=== PATIENT | male | born 1955 | race Caucasian/White ===

== ENCOUNTER 2020-09-02 10:22 | Emergency (ER) | payer OTHER ==
[~2020-09-02] VITALS: Ht 170.2 cm; Wt 68.1 kg
[2020-09-02 11:01] LABS: BASO # 0.1 x10^3/uL (0.0-0.2); BASO % 1 % (0-3); EOS # 0.1 x10^3/uL (0.0-0.7); EOS % 1 % (0-3); HEMATOCRIT 47.1 % (39.0-53.0); HEMOGLOBIN 16.1 g/dL (13.0-17.5); LYMPH # 1.4 x10^3/uL (1.0-4.8); LYMPH % 15 % (24-48); MEAN CORPUSCULAR HEMOGLOBIN 30 pg (25-35); MEAN CORPUSCULAR HGB CONC 34 g/dL (31-37); MEAN CORPUSCULAR VOLUME 89 fL (79-100); MONO # 0.6 x10^3/uL (0.0-1.1); MONO % 6 % (0-9); NEUT # 7.2 x10^3/uL (1.8-7.7); NEUT % 77 % (31-73); PLATELET COUNT 302 x10^3/uL (140-400); RED BLOOD COUNT 5.32 x10^6/uL (4.30-5.70); RED CELL DISTRIBUTION WIDTH 13.9 % (11.5-14.5); WHITE BLOOD COUNT 9.3 x10^3/uL (4.0-11.0)
[2020-09-02 11:16] LABS: CALCIUM 8.9 mg/dL (8.5-10.1); CREATININE 0.5 mg/dL (0.7-1.3); GFR 167.4; POTASSIUM 4.4 mmol/L (3.5-5.1)
[2020-09-02 11:21] LABS: ALBUMIN/GLOBULIN RATIO 1.2 (1.0-1.7); MAGNESIUM 1.9 mg/dL (1.8-2.4); TOTAL BILIRUBIN 0.8 mg/dL (0.2-1.0); TOTAL PROTEIN 7.4 g/dL (6.4-8.2)
[2020-09-02 11:30] VITALS: BP 134/75
[2020-09-02 11:49] LABS: BILIRUBIN,URINE NEGATIVE (NEG); CLARITY,URINE CLEAR; COLOR,URINE YELLOW; NITRITE,URINE NEGATIVE (NEG); PROTEIN,URINE NEGATIVE (NEG-TRACE)
[2020-09-02 12:12] LABS: BACTERIA,URINE 0 /HPF (0-FEW); WBC,URINE 0 /HPF (0-4)
--- NOTE | 2020-09-02 12:12 | EKG ---
[facility] [address] [place] [address] Test Date: 2020-09-02 Test Time: 11:00:24 Pat Name: KAYA ALDANA Department: Room: Gender: M [employer]: : 1955 Requested By: RADHA OLSEN Order Number: [id number] Reading MD: Measurements Intervals Gray Rate: 78 P: 154 ND: 186 QRS: 132 QRSD: 88 T: 125 QT: 374 QTc: 430 Interpretive Statements SINUS RHYTHM ABNORMAL RIGHT AXIS DEVIATION INCOMPLETE RIGHT BUNDLE BRANCH BLOCK CONSIDER RIGHT VENTRICULAR HYPERTROPHY QRS(T) CONTOUR ABNORMALITY CONSISTENT WITH HIGH LATERAL INFARCT AGE UNDETERMINED ABNORMAL ECG RI6.02 No previous ECG available for comparison
--- NOTE | 2020-09-02 12:16 | RAD ---
CT HEAD/BRAIN WO History: Reason: near syncope, dizzy / Spl. Instructions: / History: Comparison: None. Technique: Noncontrast CT imaging was performed of the head. Exposure: One or more of the following individualized dose reduction techniques were utilized for thi s examination: 1. Automated exposure control 2. Adjustment of the mA and/or kV according to patient size 3. Use of iterative reconstruction technique. Findings: No intracranial hemorrhage. No mass effect. No hydrocephalus. Diffuse falcine and tentorial calcifica tions. Foci of decreased attenuation within the hemispheric white matter, most often due to chronic microvas cular ischemia. Imaged orbits are unremarkable. Mild scattered paranasal sinus mucosal thickening. Mastoid air cells are clear. No acute calvarial fracture. Impression: 1. No acute intracranial abnormality. 2. Mild sequelae of chronic microvascular ischemia. Electronically signed by: Oscar Gomez DO (09/02/2020 12:14 PM) [id number]
[2020-09-02] MEDS ORDERED: predniSONE 20 MG TABLET PO ONE (12:30)
[2020-09-02] MEDS ORDERED: PRED20TA PO (12:33)
--- NOTE | 2020-09-02 12:34 | ED.ADGEN ---
Past Medical History Past Medical History: Cancer, Hypertension Additional Past Medical Histor: COLORECTAL, PROSTATE CA Past Surgical History: Other Additional Past Surgical Histo: RECTAL SX AND PROSTATECTOMY Smoking Status: Never Smoker Alcohol Use: Occasionally General Adult EDM: Chief Complaint: OTHER COMPLAINTS HPI: HPI: Patient is a 64 year old male who presents emergency department, accompanied by his , with complaints of right-sided facial numbness, and drooping. Patient reports he received his first COVID-19 injection yesterday. He states that when he went to bed last night he had a severe headache in the right posterior scalp. Patient denies any headache at this time. States that he woke up with the facial numbness and droop. He denies any numbness, tingling, or weakness of his extremities. He denies any chest pain, aphasia, vision changes, palpitations, edema, shortness of breath, wheezing, cough, body aches, fatigue, fever, nausea, vomiting, diarrhea, or abdominal pain. Patient currently denies any pain. He denies any previous history of stroke. Review of Systems: Review of Systems: Complete ROS is negative unless otherwise noted in HPI. Current Medications: Current Medications Medications (Trade) Dose Ordered Sig/Donovan Start Time Stop Time Status Last Admin Dose Admin Prednisone (Prednisone) 60 mg 1X ONCE 09/02/20 12:30 09/02/20 12:31 DC 09/02/20 12:39 60 MG Allergies: Allergies: Allergies Coded Allergies Type Severity Reaction Last Updated Verified No Known Drug Allergies 09/02/20 No Physical Exam: PE: See Above Constitutional: Well developed, well nourished, no acute distress, non-toxic appearance. [] HENT: Normocephalic, atraumatic, bilateral external ears normal, oropharynx moist, no oral exudates, nose normal. [] Eyes: PERRLA, EOMI, conjunctiva normal, no discharge. [] Neck: Normal range of motion, no tenderness, supple, no stridor. [] Cardiovascular:Heart rate regular rhythm Lungs & Thorax: Respirations even and unlabored, no retractions, no respiratory distress Abdomen:soft, no tenderness Skin: Warm, dry, no erythema, no rash. [] Extremities: No tenderness, no cyanosis, no clubbing, ROM intact, no edema. [] Neurologic: Alert and oriented X 3, normal motor function, no focal deficits noted; right-sided facial droop, unable to close right eyelid completely, unable to elevate right brow and forehead Psychologic: Affect normal, judgement normal, mood normal. [] Current Patient Data: Labs: Laboratory Tests Test 09/02/20 10:38 09/02/20 10:50 09/02/20 11:35 Glucose (Fingerstick) 110 mg/dL (70-99) H White Blood Count 9.3 x10^3/uL (4.0-11.0) Red Blood Count 5.32 x10^6/uL (4.30-5.70) Hemoglobin 16.1 g/dL (13.0-17.5) Hematocrit 47.1 % (39.0-53.0) Mean Corpuscular Volume 89 fL (79-100) Mean Corpuscular Hemoglobin 30 pg (25-35) Mean Corpuscular Hemoglobin Concent 34 g/dL (31-37) Red Cell Distribution Width 13.9 % (11.5-14.5) Platelet Count 302 x10^3/uL (140-400) Neutrophils (%) (Auto) 77 % (31-73) H Lymphocytes (%) (Auto) 15 % (24-48) L Monocytes (%) (Auto) 6 % (0-9) Eosinophils (%) (Auto) 1 % (0-3) Basophils (%) (Auto) 1 % (0-3) Neutrophils # (Auto) 7.2 x10^3/uL (1.8-7.7) Lymphocytes # (Auto) 1.4 x10^3/uL (1.0-4.8) Monocytes # (Auto) 0.6 x10^3/uL (0.0-1.1) Eosinophils # (Auto) 0.1 x10^3/uL (0.0-0.7) Basophils # (Auto) 0.1 x10^3/uL (0.0-0.2) Sodium Level 133 mmol/L (136-145) L Potassium Level 4.4 mmol/L (3.5-5.1) Chloride Level 96 mmol/L (98-107) L Carbon Dioxide Level 24 mmol/L (21-32) Anion Gap 13 (6-14) Blood Urea Nitrogen 10 mg/dL (8-26) Creatinine 0.5 mg/dL (0.7-1.3) L Estimated GFR (Cockcroft-Gault) 167.4 BUN/Creatinine Ratio 20 (6-20) Glucose Level 110 mg/dL (70-99) H Calcium Level 8.9 mg/dL (8.5-10.1) Magnesium Level 1.9 mg/dL (1.8-2.4) Total Bilirubin 0.8 mg/dL (0.2-1.0) Aspartate Amino Transferase (AST) 22 U/L (15-37) Alanine Aminotransferase (ALT) 31 U/L (16-63) Alkaline Phosphatase 94 U/L (46-116) Total Protein 7.4 g/dL (6.4-8.2) Albumin 4.0 g/dL (3.4-5.0) Albumin/Globulin Ratio 1.2 (1.0-1.7) Urine Collection Type Unknown Urine Color Yellow Urine Clarity Clear Urine pH 7.0 (<5.0-8.0) Urine Specific [place] 1.010 (1.000-1.030) Urine Protein Negative mg/dL (NEG-TRACE) Urine Glucose (UA) Negative mg/dL (NEG) Urine Ketones (Stick) 15 mg/dL (NEG) Urine Blood Negative (NEG) Urine Nitrite Negative (NEG) Urine Bilirubin Negative (NEG) Urine Urobilinogen Dipstick 1.0 mg/dL (0.2 mg/dL) Urine Leukocyte Esterase Negative (NEG) Urine RBC 1-2 /HPF (0-2) Urine WBC 0 /HPF (0-4) Urine Squamous Epithelial Cells Few /LPF Urine Bacteria 0 /HPF (0-FEW) Urine Mucus Slight /LPF Laboratory Tests 09/02/20 10:50 Laboratory Tests 09/02/20 10:50 Vital Signs: Vital Signs Date Time Temp Pulse Resp B/P (MAP) Pulse Ox O2 Delivery O2 Flow Rate FiO2 09/02/20 11:30 71 134/75 (94) 94 Room Air 09/02/20 10:35 98.3 18 98.3 EKG: EK-sinus rhythm, incomplete right bundle branch block, rate 78, no STEMI, read by Dr. Dimas [] Heart Score: C/O Chest Pain: No Risk Scores: Score 0 - 3: 2.5% MACE over next 6 weeks - Discharge Home Score 4 - 6: 20.3% MACE over next 6 weeks - Admit for Clinical Observation Score 7 - 10: 72.7% MACE over next 6 weeks - Early Invasive Strategies Radiology/Procedures: Radiology/Procedures: PROCEDURE: CT HEAD WO CONTRAST CT HEAD/BRAIN WO History: Reason: near syncope, dizzy / Spl. Instructions: / History: Comparison: None. Technique: Noncontrast CT imaging was performed of the head. Exposure: One or more of the following individualized dose reduction techniques were utilized for this examination: 1. Automated exposure control 2. Adjustment of the mA and/or kV according to patient size 3. Use of iterative reconstruction technique. Findings: No intracranial hemorrhage. No mass effect. No hydrocephalus. Diffuse falcine and tentorial calcifications. Foci of decreased attenuation within the hemispheric white matter, most often due to chronic microvascular ischemia. Imaged orbits are unremarkable. Mild scattered paranasal sinus mucosal thickening. Mastoid air cells are clear. No acute calvarial fracture. Impression: 1. No acute intracranial abnormality. 2. Mild sequelae of chronic microvascular ischemia. [] Course & Med Decision Making: Course & Med Decision Making Pertinent Labs and Imaging studies reviewed. (See chart for details) 64-year-old presents emergency department complaints of right-sided facial numbness and drooping after receiving his COVID-19 shot yesterday. Also reported having a headache in the posterior right side of the scalp yesterday evening, he currently denied any headache or vision changes. CT the patient's head revealed no acute findings. CBC is unremarkable; CMP revealed sodium 133, chloride 96, creatinine 1.5, glucose of 110; UA is unremarkable. The patient's vital signs are stable throughout his emergency department visit. Physical pain is most concerning for Spear's palsy. Patient was given 60 mg of prednisone in the ER he was written a prescription for 60 mg of prednisone for the next 6 days. I encouraged him to follow-up with his primary care doctor for reevaluation, return to the ER if symptoms worsen or fever develop. Patient verbalized an understanding of home care, medications, follow-up, and return to ED instructions and was in agreement with the plan of care. [] Dragon Disclaimer: Dragon Disclaimer: This electronic medical record was generated, in whole or in part, using a voice recognition dictation system. Departure Departure Impression: Primary Impression: Spear's palsy Disposition: 01 DC HOME SELF CARE/HOMELESS Condition: STABLE Referrals: DEUCE RODRIGUEZ MD (PCP) Patient Instructions: Spear's Palsy-Brief Additional Instructions: Fill the prescription(s) and take as directed. Be sure to tape your eye closed when you sleep. I recommend that you use artificial tears to help keep the affected eye moist. Follow-up with your primary care doctor in the next 1 to 2 days, return to the ER if your symptoms worsen or fever develops. Scripts Prednisone (PREDNISONE) 20 Mg Tablet 3 TAB PO DAILY for 6 Days, #18 TAB begin taking tomorrow, first dose given in ER Prov: RADHA OLSEN APRN 09/02/20 RADHA OLSEN APRN Sep 02, 2020 12:34
== END 2020-09-02 12:45 | disposition home or self-care (01) ==
LOC: ER 10:22
DX: G51.0 Bell's palsy (principal); I10 Essential (primary) hypertension
CPT/HCPCS: 36415; 70450; 80053; 81001; 82962; 83735; 85025; 93005; 99285; J7512